=== PATIENT | female | born 1970 | race Caucasian/White ===

== ENCOUNTER 2019-08-31 04:13 | Observation (INO) | payer OTHER ==
[2019-08-31 05:25] LABS: Hematocrit 40.7 % (30.3-42.9); Hemoglobin 13.5 gm/dl (10.1-14.3); Mean Corpuscular HGB Conc 33 % (30-34); Mean Corpuscular Volume 88 fl (79-97); Platelet Count 298 K/mm3 (140-440); Red Blood Count 4.65 M/mm3 (3.65-5.03); Red Cell Distribution Width 12.7 % (13.2-15.2)
[2019-08-31 05:41] LABS: Alanine Aminotransferase 26 units/L (7-56); Albumin 4.6 g/dL (3.9-5); BUN/Creatinine Ratio 25; Blood Urea Nitrogen 10 mg/dL (7-17); Hemolysis Index 7
[2019-08-31 06:11] LABS: Basophils % (Manual) 0 % (0.0-1.8); Eosinophils % (Manual) 0 % (0.0-4.3); Platelet Estimate Consistent w Auto; Total Cells Counted 100
--- NOTE | 2019-08-31 06:44 | Cat Scan Report ---
CT abdomen pelvis w con INDICATION / CLINICAL INFORMATION: Pt complains of "Generalized" abdominal pain with emesis x 1 day. No previous abdominal surgeries. Om nipaque 300 / 100ml's was used for this exam.. TECHNIQUE: All CT scans at this location are performed using CT dose reduction for ALARA by means of automated e xposure control. COMPARISON: None available. FINDINGS: No free fluid is seen in the abdomen. Diffuse fatty infiltration is present in the liver without foca l abnormality. The proximal duodenum is edematous. The spleen, kidneys, pancreas, adrenal glands and great vessels are normal. No enlarged mesenteric or retroperitoneal lymph nodes are identified. In the pelvis, no free fluid is seen. The appendix is distended with fluid and contains at least 2 ap pendicoliths. No periappendiceal inflammation is seen. No enlarged lymph nodes are identified. The bl adder is normal. No significant skeletal abnormality is present. IMPRESSION: 1. Distended fluid-filled appendix with at least 2 appendicoliths present. No periappendiceal inflamm ation is seen. The presence of early appendicitis cannot be excluded 2. Edematous proximal duodenum consistent with inflammation Signer Name: Paxton Caba MD FACR Signed: 08/31/2019 6:40 AM Workstation Name: [employer]
[2019-08-31] MEDS ORDERED: MORPHINE 4 MG/1 ML INJ IV ONE (07:38)
[2019-08-31] MEDS ORDERED: ONDANSETRON 4 MG/2 ML INJ IV ONE (07:38)
[2019-08-31] MEDS ORDERED: PANTOPRAZOLE 40 MG INJ IV ONE (07:40)
--- NOTE | 2019-08-31 07:49 | Emergency Department Report ---
ED Abdominal Pain HPI - General Chief Complaint: Abdominal Pain Stated Complaint: ABD PAIN Time Seen by Provider: 08/31/19 07:34 Source: patient Mode of arrival: Ambulatory Limitations: No Limitations - History of Present Illness Initial Comments: Mrs. Salazar is a 49-year-old female without significant past medical history who presents with sharp epigastric pain persistent for the past day. One episode of vomiting. No fever. No diarrhea. No constipation. No past surgical history. She has had mild epigastric pain for several years. At outside hospital she underwent EGD without any findings. For the past day and a half the pain is been severe. Patient primarily speaks Arabic. I used language line spanish interpreter ID number [id number] to obtain history and physical and also to explain diagnosis and treatment plan. MD Complaint: abdominal pain -: Gradual Location: epigastric (1) Severity: moderate Quality: burning Consistency: constant Improves With: nothing Worsens With: nothing Associated Symptoms: nausea, vomiting - Related Data Allergies Allergy/AdvReac Type Severity Reaction Status Date / Time No Known Allergies Allergy Unverified 08/31/19 04:34 ED Review of Systems ROS: Stated complaint: ABD PAIN Other details as noted in HPI Comment: All other systems reviewed and negative Constitutional: denies: chills, fever, malaise Cardiovascular: denies: chest pain Gastrointestinal: abdominal pain, nausea, vomiting ED Past Medical Hx - Past Medical History Previous Medical History?: No - Surgical History Past Surgical History?: No - Social History Smoking Status: Never Smoker Substance Use Type: None ED Physical Exam - General Limitations: No Limitations General appearance: alert, in no apparent distress, other (Appears uncomfortable) - Head Head exam: Present: atraumatic, normocephalic - Eye Eye exam: Present: normal appearance - ENT ENT exam: Present: mucous membranes moist - Neck Neck exam: Present: normal inspection, full ROM - Respiratory Respiratory exam: Present: normal lung sounds bilaterally. Absent: respiratory distress, wheezes, rales, rhonchi - Cardiovascular Cardiovascular Exam: Present: regular rate, normal rhythm, normal heart sounds. Absent: systolic murmur, diastolic murmur, rubs, gallop - GI/Abdominal GI/Abdominal exam: Present: soft, normal bowel sounds. Absent: distended, tenderness, guarding, rebound - Extremities Exam Extremities exam: Present: normal inspection - Neurological Exam Neurological exam: Present: alert, oriented X3 - Psychiatric Psychiatric exam: Present: normal affect, normal mood - Skin Skin exam: Present: warm, dry, intact, normal color. Absent: rash ED Course Vital Signs 08/31/19 08/31/19 08/31/19 04:32 07:33 07:36 Temperature 98.1 F Pulse Rate 91 H 85 85 Respiratory 20 17 18 Rate Blood Pressure 90/58 115/73 O2 Sat by Pulse 98 98 Oximetry ED Medical Decision Making - Lab Data Result diagrams: 08/31/19 05:10 08/31/19 05:10 Laboratory Results - last 24 hr 08/31/19 08/31/19 05:10 05:10 WBC 12.0 H RBC 4.65 Hgb 13.5 Hct 40.7 MCV 88 MCH 29 MCHC 33 RDW 12.7 L Plt Count 298 Add Manual Diff Complete Total Counted 100 Seg Neutrophils % Lead Front Desk Agent Seg Neuts % (Manual) 91.0 H Band Neutrophils % 0 Lymphocytes % (Manual) 6.0 L Reactive Lymphs % (Man) 0 Monocytes % (Manual) 3.0 Eosinophils % (Manual) 0 Basophils % (Manual) 0 Metamyelocytes % 0 Myelocytes % 0 Promyelocytes % 0 Blast Cells % 0 Nucleated RBC % Not Reportable Seg Neutrophils # Man 10.9 H Band Neutrophils # 0.0 Lymphocytes # (Manual) 0.7 L Abs React Lymphs (Man) 0.0 Monocytes # (Manual) 0.4 Eosinophils # (Manual) 0.0 Basophils # (Manual) 0.0 Metamyelocytes # 0.0 Myelocytes # 0.0 Promyelocytes # 0.0 Blast Cells # 0.0 WBC Morphology Not Reportable Hypersegmented Neuts Not Reportable Hyposegmented Neuts Not Reportable Hypogranular Neuts Not Reportable Smudge Cells Not Reportable Toxic Granulation Not Reportable Toxic Vacuolation Not Reportable Dohle Bodies Not Reportable Pelger-Huet Anomaly Not Reportable Alexsandra Rods Not Reportable Platelet Estimate Consistent w auto Clumped Platelets Not Reportable Plt Clumps, EDTA Not Reportable Large Platelets Not Reportable Giant Platelets Not Reportable Platelet Satelliting Not Reportable Plt Morphology Comment Not Reportable RBC Morphology Not Reportable Dimorphic RBCs Not Reportable Polychromasia Not Reportable Hypochromasia Not Reportable Poikilocytosis Not Reportable Anisocytosis Not Reportable Microcytosis Not Reportable Macrocytosis Not Reportable Spherocytes Not Reportable Pappenheimer Bodies Not Reportable Sickle Cells Not Reportable Target Cells Not Reportable Tear Drop Cells Not Reportable Ovalocytes Not Reportable Helmet Cells Not Reportable [place] Bodies Not Reportable [place] Rings Not Reportable Andrews Cells Not Reportable Bite Cells Not Reportable Crenated Cell Not Reportable Elliptocytes Not Reportable Acanthocytes (Spur) Not Reportable Rouleaux Not Reportable Hemoglobin C Crystals Not Reportable Schistocytes Not Reportable Malaria parasites Not Reportable Víctor Bodies Not Reportable Hem Pathologist Commnt No Sodium 137 Potassium 3.8 Chloride 98.2 Carbon Dioxide 22 Anion Gap 21 BUN 10 Creatinine 0.4 L Estimated GFR > 60 BUN/Creatinine Ratio 25 Glucose 153 H Calcium 9.0 Total Bilirubin 0.80 AST 24 ALT 26 Alkaline Phosphatase 79 Total Protein 7.7 Albumin 4.6 Albumin/Globulin Ratio 1.5 - Radiology Data Radiology results: report reviewed CT abdomen pelvis: Distended fluid-filled appendix with 2 appendicoliths present no periappendiceal inflammation is seen possible early appendicitis Edematous proximal duodenum consistent with inflammation - Medical Decision Making This is a 49-year-old female who presents with epigastric pain 1 episode of vomiting. She has findings on CT scan revealed possible early appendicitis and edematous duodenum. Symptoms do correspond to peptic ulcer disease possible duodenitis. However with the incidental finding of possible appendicitis with elevated blood count I have consulted general surgeon Dr Plascencia who recommended observation and IV antbiotics Admitted to the hospitalist service. I suspect that abnormal appendix is an incidental finding however with however with white count left shift it is prudent to treat patient conservatively according to general surgeon consult Critical care attestation.: If time is entered above; I have spent that time in minutes in the direct care of this critically ill patient, excluding procedure time. ED Disposition Clinical Impression: Peptic ulcer disease, Appendicitis, Acute abdominal pain Disposition: OP ADMIT IP TO THIS HOSP Is pt being admited?: Yes Does the pt Need Aspirin: No Condition: Stable Referrals: PRIMARY CARE, [Primary Care Provider] - 3-5 Days
[2019-08-31] MEDS ORDERED: PIPERACIL/TAZOBACTA 4.5/NS 100 4.5 GM/100 ML VIAL IV ONE (07:50)
[2019-08-31] MEDS ORDERED: hydrALAZINE 20 MG/1 ML INJ IV PRN (09:07)
[2019-08-31] MEDS ORDERED: ONDANSETRON 4 MG/2 ML INJ IV PRN (09:07)
[2019-08-31] MEDS ORDERED: MORPHINE 2 MG/1 ML INJ IV PRN (09:07)
--- NOTE | 2019-08-31 09:10 | History and Physical Report ---
History of Present Illness Date of examination: 08/31/19 Date of admission: 08/31/19 08:04 Chief complaint: Abdominal pain History of present illness: This is a 49-year-old female without any prior medical problem presented to the ER with complaints of epigastric pain for last couple days along with nausea and vomiting. Patient states that the pain located on the epigastric region which get worse with eating pain is sharp in nature 7 out of 10 in intensity. As her symptoms continue to get worse and she was unable to eat anything she came to ER for further evaluation and management. In the ER she has findings on CT scan revealed possible early appendicitis and edematous duodenum. Due to the incidental finding of possible appendicitis with elevated blood count ER consulted general surgeon Dr Plascencia who recommended observation and IV antbiotics. Patient now being admitted for further evaluation and management. Past Medical History: No medical history Past Surgical History: No surgical history Social history: denies: smoking, alcohol abuse Family history: denies gastric malignancy Review of System: Constitutional: no fever, no chills, no weight loss Ears, eyes, nose, mouth and throat: no nasal congestion, no nasal discharge, no sinus pressure, no vision change, no red eye. Neck: No neck pain or rigidity. Cardiovascular: No chest pain, no orthopnea, no palpitations, no leg swelling Respiratory: No shortness of breath, no cough, no congestion, no wheezing Gastrointestinal: + abdominal pain, + nausea, + vomiting Genitourinary : no dysuria, no hematuria Musculoskeletal: no joint swelling or muscle ache Integumentary: no rash, no pruritis Neurological: no parathesias, no numbness, no tingling Endocrine: no cold or heat intolerance, no polyuria or polydipsia Hematologic/Lymphatic: no easy bruising, no easy bleeding, no gland swelling Allergic/Immunologic: no urticaria, no angioedema. Medications and Allergies Allergies Allergy/AdvReac Type Severity Reaction Status Date / Time No Known Allergies Allergy Unverified 08/31/19 04:34 Home Medications Medication Instructions Recorded Confirmed Last Taken Type No Known Home Medications [No 08/31/19 08/31/19 Unknown History Reported Home Medications] Active Meds: Active Medications Enoxaparin Sodium (Enoxaparin) 40 mg SUB-Q QDAY@2200 [facility] Hydralazine HCl (Apresoline) 5 mg IV Q30MIN PRN PRN Reason: Hypertension Sodium Chloride (Nacl 0.9% 1000 Ml) 1,000 mls @ 100 mls/hr IV DIRECT [facility] Ceftriaxone Sodium (Rocephin/Ns 1 Gm/50 Ml) 1 gm in 50 mls @ 100 mls/hr IV Q12HR [facility]; Protocol Morphine Sulfate (Morphine) 2 mg IV Q4H PRN PRN Reason: Pain, Moderate (4-6) Ondansetron HCl (Zofran) 4 mg IV Q8H PRN PRN Reason: N/V unrelieved by Reglan Exam - Physical Exam Narrative exam: GENERAL: well-developed and well-nourished female lying on bed appeared to be i n no discomfort. HEENT: Normocephalic. Atraumatic. No conjunctival congestion or icterus. Patient has moist mucous membranes. NECK: Supple. Trachea midline. CHEST/LUNGS: Clear to auscultated bilaterally, breathing nonlabored. No wheezes crackles or rhonchi. HEART/CARDIOVASCULAR: Regular in rate and rhythm. S1 and S2 positive. ABDOMEN: Abdomen is soft, positive for epigastric and upper abdomen diffuse mild tenderness. Patient has normal bowel sounds. SKIN: There is no rash. Warm and dry. NEURO: No focal motor deficit. Follows command. MUSCULOSKELETAL: No joint effusion or tenderness. EXTRIMITY: No edema, no cyanosis or clubbing. PSYCH: Cooperative. - Constitutional Vitals: Temp Pulse Resp BP Pulse Ox 98.1 F 85 19 98/64 99 08/31/19 04:32 08/31/19 08:30 08/31/19 08:30 08/31/19 08:30 08/31/19 08:30 Results - Labs CBC & Chem 7: 09/01/19 04:29 08/31/19 05:10 Labs: Abnormal lab results 08/31/19 08/31/19 Range/Units 05:10 05:10 WBC 12.0 H (4.5-11.0) K/mm3 RDW 12.7 L (13.2-15.2) % Seg Neuts % (Manual) 91.0 H (40.0-70.0) % Lymphocytes % (Manual) 6.0 L (13.4-35.0) % Seg Neutrophils # Man 10.9 H (1.8-7.7) K/mm3 Lymphocytes # (Manual) 0.7 L (1.2-5.4) K/mm3 Creatinine 0.4 L (0.7-1.2) mg/dL Glucose 153 H (65-100) mg/dL - Imaging and Cardiology CT scan - abdomen: report reviewed Assessment and Plan Acute appendicitis- suspected -Admit the patient to [facility], consult general surgery -Start on empiric and antibiotics, continue IV fluids, keep n.p.o. -Ordered as needed nausea and IV pain medications -Monitor BMP, Peptic ulcer disease, placed on PPI twice daily, consulted GI Leukocytosis, could be reactive -Continue antibiotics for now DVT prophylaxis, Lovenox following surgery CT abdomen pelvis: Distended fluid-filled appendix with 2 appendicoliths present no periappendiceal inflammation is seen possible early appendicitis. Edematous proximal duodenum consistent with inflammation
[2019-08-31] MEDS ORDERED: cefTRIAXone/NS 1 GM/50 ML 1 GM/50 ML BAG IV SCH (10:00)
--- NOTE | 2019-08-31 10:50 | Consultation ---
History of Present Illness Consult date: 08/31/19 Reason for consult: other (appendicitis?) Chief complaint: abdominal pain - History of present illness History of present illness: 49 year old Serbian female presents with a several day hx of epigastric pain and several episodes of vomiting. She says she had a similar pain about 5 years ago of which she was treated at a hospital and discharged without incident. She says that she has been having regular bowel movements and passing gas. She takes nexium for her abdominal pain. She denies taking NSIADS, smoking, or drinking alcohol excessively. She believes she may have had an EGD about 5 years ago when she was last having the pain. She had a CT scan in the ED which showed duodenal inflammation which explains her symptoms, but an incidental finding of fluid filled, dilated appendix with appendecholith without signs of inflammation. No free air or fluid. She denies ever have RLQ pain. Information obtained via a Serbian distributed generation project manager over the phone. Past History Past Medical History: No medical history Past Surgical History: No surgical history Social history: denies: smoking, alcohol abuse Medications and Allergies Allergies Allergy/AdvReac Type Severity Reaction Status Date / Time No Known Allergies Allergy Unverified 08/31/19 04:34 Active Meds: Active Medications Enoxaparin Sodium (Enoxaparin) 40 mg SUB-Q QDAY@2200 [facility] Hydralazine HCl (Apresoline) 5 mg IV Q30MIN PRN PRN Reason: Hypertension Sodium Chloride (Nacl 0.9% 1000 Ml) 1,000 mls @ 100 mls/hr IV DIRECT [facility] Ceftriaxone Sodium (Rocephin/Ns 1 Gm/50 Ml) 1 gm in 50 mls @ 100 mls/hr IV Q24HR [facility]; Protocol Morphine Sulfate (Morphine) 2 mg IV Q4H PRN PRN Reason: Pain, Moderate (4-6) Ondansetron HCl (Zofran) 4 mg IV Q8H PRN PRN Reason: N/V unrelieved by Reglan Pantoprazole Sodium (Protonix) 40 mg IV BID [facility] Review of Systems - Constitutional poor appetite - Cardiovascular no chest pain - Respiratory no cough with sputum - Gastrointestinal abdominal pain, nausea, vomiting Exam Vital Signs Temp Pulse Resp BP Pulse Ox 98.1 F 91 H 20 90/58 98 08/31/19 04:32 08/31/19 04:32 04/01/20 04:32 08/31/19 04:32 08/31/19 04:32 - General physical appearance Positive: well developed, well nourished, no distress - Cardiovascular Rhythm: regular - Extremities Extremities: no ischemia - Abdomen Abdomen: Present: soft, other (tender to palpation in the epigastric area, no tenderness to palpation in the RLQ or suprapubic area). Absent: rebound, guarding, rigid Results - Labs 08/31/19 05:10 08/31/19 05:10 Abnormal lab results 08/31/19 08/31/19 Range/Units 05:10 05:10 WBC 12.0 H (4.5-11.0) K/mm3 RDW 12.7 L (13.2-15.2) % Seg Neuts % (Manual) 91.0 H (40.0-70.0) % Lymphocytes % (Manual) 6.0 L (13.4-35.0) % Seg Neutrophils # Man 10.9 H (1.8-7.7) K/mm3 Lymphocytes # (Manual) 0.7 L (1.2-5.4) K/mm3 Creatinine 0.4 L (0.7-1.2) mg/dL Glucose 153 H (65-100) mg/dL Diabetes panel 08/31/19 Range/Units 05:10 Sodium 137 (137-145) mmol/L Potassium 3.8 (3.6-5.0) mmol/L Chloride 98.2 (98-107) mmol/L Carbon Dioxide 22 (22-30) mmol/L BUN 10 (7-17) mg/dL Creatinine 0.4 L (0.7-1.2) mg/dL Glucose 153 H (65-100) mg/dL Calcium 9.0 (8.4-10.2) mg/dL AST 24 (5-40) units/L ALT 26 (7-56) units/L Alkaline Phosphatase 79 (35-129) units/L Total Protein 7.7 (6.3-8.2) g/dL Albumin 4.6 (3.9-5) g/dL Calcium panel 08/31/19 Range/Units 05:10 Calcium 9.0 (8.4-10.2) mg/dL Albumin 4.6 (3.9-5) g/dL Pituitary panel 08/31/19 Range/Units 05:10 Sodium 137 (137-145) mmol/L Potassium 3.8 (3.6-5.0) mmol/L Chloride 98.2 (98-107) mmol/L Carbon Dioxide 22 (22-30) mmol/L BUN 10 (7-17) mg/dL Creatinine 0.4 L (0.7-1.2) mg/dL Glucose 153 H (65-100) mg/dL Calcium 9.0 (8.4-10.2) mg/dL Adrenal panel 08/31/19 Range/Units 05:10 Sodium 137 (137-145) mmol/L Potassium 3.8 (3.6-5.0) mmol/L Chloride 98.2 (98-107) mmol/L Carbon Dioxide 22 (22-30) mmol/L BUN 10 (7-17) mg/dL Creatinine 0.4 L (0.7-1.2) mg/dL Glucose 153 H (65-100) mg/dL Calcium 9.0 (8.4-10.2) mg/dL Total Bilirubin 0.80 (0.1-1.2) mg/dL AST 24 (5-40) units/L ALT 26 (7-56) units/L Alkaline Phosphatase 79 (35-129) units/L Total Protein 7.7 (6.3-8.2) g/dL Albumin 4.6 (3.9-5) g/dL - Imaging CT scan - abdomen: report reviewed, image reviewed CT scan - pelvis: report reviewed, image reviewed Assessment and Plan 49 year old female with epigatric pain with duodenitis on CT scan, incidental finding of abnormal appendix with no correlating symtpoms at this time. Afebrile, stable, with leukocytosis. observe, abx. can have clear liquids. If pain becomes localized to the RLQ, may warrant lap appy. At present no surgical intervention warranted at this time. Will continue to follow.
[2019-08-31] MEDS: SODIUM CHLORIDE 0.9% 1000 ML 1,000 ML IV SCH ×2 (11:13→21:51)
[2019-08-31] MEDS: SUCRALFATE 1 GM/10 ML ORAL LIQD PO SCH ×2 (11:26→18:07)
[2019-08-31] MEDS: cefTRIAXone/NS 1 GM/50 ML 1 GM/50 ML BAG IV SCH (11:26)
[2019-08-31] MEDS: ENOXAPARIN 40 MG/0.4 ML INJ SUB-Q SCH (21:52)
[2019-08-31] MEDS: PANTOPRAZOLE 40 MG INJ IV SCH (21:52)
[2019-09-01] MEDS: SUCRALFATE 1 GM/10 ML ORAL LIQD PO SCH ×5 (03:43→23:56)
[2019-09-01 05:20] LABS: Eosinophils # (Auto) 0.1 K/mm3 (0.0-0.4); Eosinophils % (Auto) 1.1 % (0.0-4.3); Hematocrit 35.8 % (30.3-42.9); Lymphocytes # (Auto) 2.1 K/mm3 (1.2-5.4); Lymphocytes % (Auto) 24.3 % (13.4-35.0); Mean Corpuscular HGB Conc 33 % (30-34); Mean Corpuscular Volume 89 fl (79-97); Monocytes # (Auto) 0.4 K/mm3 (0.0-0.8); Monocytes % (Auto) 5.1 % (0.0-7.3); Platelet Count 252 K/mm3 (140-440); Red Blood Count 4.03 M/mm3 (3.65-5.03); Red Cell Distribution Width 12.9 % (13.2-15.2)
[2019-09-01] MEDS: SODIUM CHLORIDE 0.9% 1000 ML 1,000 ML IV SCH ×2 (07:46→21:59)
[2019-09-01] MEDS: cefTRIAXone/NS 1 GM/50 ML 1 GM/50 ML BAG IV SCH (10:25)
[2019-09-01] MEDS: PANTOPRAZOLE 40 MG INJ IV SCH ×2 (10:25→22:00)
--- NOTE | 2019-09-01 10:31 | Gastroenterology Consultation ---
History of Present Illness - Reason for Consult Consult date: 09/01/19 abd pain, abnormal CT abd Requesting physician: JAMEY WILSON - History of Present Illness Patient is a pleasant 49-year-old female who presents with acute abdominal pain. She reports the abdominal pain is epigastric, intermittent, duration 3 days, worse with eating better with nothing, severe, she is having difficulty describing the quality of the pain just that it is extremely bothersome and there, no radiation, no nausea or vomiting or diarrhea associated with the symptoms. Reports had similar symptoms 5 years ago had an EGD she does not know the underlying etiology of that episode 5 years ago. Did have a CT scan which was concerning for significant duodenitis/peptic ulcer disease. reports the pain is not abating Denies history of NSAID use. Reports taking intermittent PPI Denies sick contacts or travel history Used telephone via means scaleman for history Past Medical History: No medical history Past Surgical History: No surgical history Social history: denies: smoking, alcohol abuse Family history denies gastric malignancy Allergies no known drug allergies Home medicationsplease see med rec sheet Obtained/updated/reviewed patient's current medications Past History Past Medical History: No medical history Past Surgical History: No surgical history Social history: denies: smoking, alcohol abuse Medications and Allergies Allergies Allergy/AdvReac Type Severity Reaction Status Date / Time No Known Allergies Allergy Unverified 08/31/19 04:34 Home Medications Medication Instructions Recorded Confirmed Last Taken Type No Known Home Medications [No 08/31/19 08/31/19 Unknown History Reported Home Medications] Active Meds: Active Medications Enoxaparin Sodium (Enoxaparin) 40 mg SUB-Q QDAY@2200 [facility] Last Admin: 08/31/19 21:52 Dose: 40 mg Documented by: Hydralazine HCl (Apresoline) 5 mg IV Q30MIN PRN PRN Reason: Hypertension Sodium Chloride (Nacl 0.9% 1000 Ml) 1,000 mls @ 100 mls/hr IV DIRECT [facility] Last Admin: 09/01/19 07:46 Dose: 100 mls/hr Documented by: Ceftriaxone Sodium (Rocephin/Ns 1 Gm/50 Ml) 1 gm in 50 mls @ 100 mls/hr IV Q24HR [facility]; Protocol Last Admin: 09/01/19 10:25 Dose: 100 mls/hr Documented by: Morphine Sulfate (Morphine) 2 mg IV Q4H PRN PRN Reason: Pain, Moderate (4-6) Ondansetron HCl (Zofran) 4 mg IV Q8H PRN PRN Reason: N/V unrelieved by Regbeny Pantoprazole Sodium (Protonix) 40 mg IV BID [facility] Last Admin: 09/01/19 10:25 Dose: 40 mg Documented by: Sucralfate (Carafate) 1 gm PO Q6HR [facility] Last Admin: 09/01/19 06:58 Dose: 1 gm Documented by: Review of Systems - Review of Systems All systems: negative (10 systems reviewed and negative except as mentioned above in the history present illness) Exam - Constitutional Vital Signs: Temp Pulse Resp BP Pulse Ox 97.9 F 82 18 96/72 96 09/01/19 08:58 09/01/19 08:58 09/01/19 08:58 09/01/19 08:58 09/01/19 08:58 General appearance: no acute distress - EENT Eyes: EOM intact ENT: hearing intact - Neck Neck: supple - Respiratory Respiratory effort: normal - Cardiovascular Rhythm: regular - Gastrointestinal General gastrointestinal: Present: soft, tender (Minimal upper abdominal tenderness to palpation) - Integumentary Integumentary: Present: dry - Neurologic Neurological: alert and oriented x3 - Psychiatric Psychiatric: appropriate mood/affect - Labs CBC & Chem 7: 09/01/19 04:29 08/31/19 05:10 Lab Results: Laboratory Results - last 24 hr 09/01/19 04:29 WBC 8.5 RBC 4.03 Hgb 12.0 Hct 35.8 MCV 89 MCH 30 MCHC 33 RDW 12.9 L Plt Count 252 Lymph % (Auto) 24.3 Hemphill % (Auto) 5.1 Eos % (Auto) 1.1 Baso % (Auto) 0.0 Lymph # 2.1 [place]ill # 0.4 Eos # 0.1 Baso # 0.0 Seg Neutrophils % 69.5 Seg Neutrophils # 5.9 Assessment and Plan Highest on the differential diagnosis is acute peptic ulcer disease, followed by infectious duodenitis mass/malignancy, etc. Given the severity of her symptoms and significant abnormality on CAT scan do recommend EGD for further evaluation please maintain n.p.o. status in anticipation EGD in the near future continue PPI and Carafate in the meantime Regarding possible appendicitis seen on the CAT scan, appreciate surgery input and agree that given normalized white count and patient without any tenderness to palpation in the right lower quadrant surgical intervention is not required at this juncture, - Patient Problems (1) Abnormal abdominal CT scan Current Visit: Yes Status: Acute (2) Acute abdominal pain Current Visit: Yes Status: Acute (3) Peptic ulcer disease Current Visit: Yes Status: Acute
--- NOTE | 2019-09-01 12:21 | Progress Note ---
Assessment and Plan 49 year old female with epigastric pain and CT scan that shows duodenal inflammation and appendiceal abnormalities with no inflammation. af ebrile,stable, with normalization of leukocytosis. No surgical intervention warranted at this time since she is asymptomatic in regards to appendix. GI is on board to evaluate epigastric pain and may do EGD. Pt can follow up in the office if RLQ pain presents itself after discharge and not severe enough to be evaluated in the ER. Subjective Date of service: 09/01/19 Patient Reports: Positive: no new complaints, feels better, tolerating liquids well Narrative: no acute events overnight. Pt says that she is not having any lower abdominal pain and that her epigastric pain is improved. Objective Vital Signs - 12hr 09/01/19 09/01/19 04:51 08:58 Temperature 97.9 F 97.9 F Pulse Rate 84 82 Respiratory 18 18 Rate Blood Pressure 90/57 Blood Pressure 96/72 [Left] O2 Sat by Pulse 97 96 Oximetry - General physical appearance well developed, no distress, no pain - Respiratory normal expansion, normal respiratory effort - Abdomen soft, not tender - Labs 09/01/19 04:29 08/31/19 05:10
--- NOTE | 2019-09-01 13:23 | Progress Note ---
Assessment and Plan Acute appendicitis- suspected based on CT abdomen findings -consulted general surgery -recommended no surgical intervention -Start on empiric and antibiotics, continue IV fluids, -Ordered as needed nausea and IV pain medications -Monitor BMP, Peptic ulcer disease, placed on PPI twice daily, consulted GI -Started on clear liquid diet, also placed on Carafate -Keep n.p.o. now for possible EGD today Leukocytosis, could be reactive -Continue antibiotics for now DVT prophylaxis, Lovenox following surgery CT abdomen pelvis: Distended fluid-filled appendix with 2 appendicoliths present no periappendiceal inflammation is seen possible early appendicitis. Edematous proximal duodenum consistent with inflammation Subjective Date of service: 09/01/19 Interval history: Patient seen and examined Patient continued to complains of epigastric pain GI recommended EGD, will keep n.p.o. Objective - Exam Narrative Exam: GENERAL: well-developed and well-nourished female lying on bed appeared to be in no discomfort. HEENT: Normocephalic. Atraumatic. No conjunctival congestion or icterus. Patient has moist mucous membranes. NECK: Supple. Trachea midline. CHEST/LUNGS: Clear to auscultated bilaterally, breathing nonlabored. No wheezes crackles or rhonchi. HEART/CARDIOVASCULAR: Regular in rate and rhythm. S1 and S2 positive. ABDOMEN: Abdomen is soft, positive for epigastric and upper abdomen diffuse mild tenderness. Patient has normal bowel sounds. SKIN: There is no rash. Warm and dry. NEURO: No focal motor deficit. Follows command. MUSCULOSKELETAL: No joint effusion or tenderness. EXTRIMITY: No edema, no cyanosis or clubbing. PSYCH: Cooperative. - Constitutional Vitals: Vital Signs - 12hr 09/01/19 09/01/19 09/01/19 04:51 08:58 10:20 Temperature 97.9 F 97.9 F Pulse Rate 84 82 82 Respiratory 18 18 Rate Blood Pressure 90/57 121/83 Blood Pressure 96/72 [Left] O2 Sat by Pulse 97 96 98 Oximetry 09/01/19 12:21 Temperature 98.4 F Pulse Rate 85 Respiratory 18 Rate Blood Pressure 104/82 Blood Pressure [Left] O2 Sat by Pulse 98 Oximetry - Labs CBC & Chem 7: 09/01/19 04:29 08/31/19 05:10 Labs: Abnormal lab results 09/01/19 Range/Units 04:29 RDW 12.9 L (13.2-15.2) %
[2019-09-01] MEDS ORDERED: SODIUM CHLORIDE 0.9% 1000 ML 1,000 ML ONE (14:15)
--- NOTE | 2019-09-01 14:22 | Anesthesia Consultation ---
Anesthesia Consult and Med Hx Date of service: 09/01/19 - Airway Anesthetic Teeth Evaluation: Good ROM Head & Neck: Adequate Mental/Hyoid Distance: Adequate Mallampati Class: Class II Intubation Access Assessment: Probably Good - Pre-Operative Health Status ASA Pre-Surgery Classification: ASA2 Proposed Anesthetic Plan: MAC - Gastrointestinal Hx Ulcer: Yes Hx Gastroesophageal Reflux Disease: Yes
--- NOTE | 2019-09-01 14:22 | Anesthesia Day of Surgery ---
Anesthesia Day of Surgery - Day of Surgery Patient Examined: Yes Patient H&P Reviewed: Yes Patient is NPO: Yes
[2019-09-01] MEDS ORDERED: propofoL 200 MG/20 ML VIAL IV ONE (14:25)
[2019-09-01] MEDS ORDERED: SODIUM CHLORIDE 0.9% 1000 ML 1,000 ML IV SCH (14:30)
--- NOTE | 2019-09-01 14:35 | Operative Report ---
Operative Report Operative Report: DOS: 09/01/19 SURGEON: Shawn Rivera MD EGD with biopsy REPORT PREOPERATIVE DIAGNOSIS and POSTOPERATIVE DIAGNOSIS: Epigastric abdominal pain, abnormal CAT scan ESTIMATED BLOOD LOSS: Minimal DESCRIPTION OF PROCEDURE: A high-resolution EGD scope was passed through the oropharynx, esophagus, stomach, and second portion of duodenum. The scope was carefully withdrawn. Retroflexion was performed in the stomach. At the end of the procedure, the scope was cleaned using normal technique. Vital signs monitored continuously throughout. SEDATION: Provided by Anesthesiology Services. COMPLICATIONS: None. FINDINGS: * No gross lesions in the entire examined duodenum no correlate on EGD for the abnormality seen on the CAT scan * Mild gastritis of the gastric antrum and body with mild erythema. Biopsies were taken to rule out H. Pylori infection. A total of 5 biopsies were taken, 2 from the antrum, 1 from the incisura, 2 from the body. * GE junction 38 cm from incisors * Remainder of the exam was normal RECOMMENDATIONS: * No clear GI source for the severe abdominal pain in the epigastric area that the patient is experiencing. Continue PPI and Carafate and reassess in a.m. diet initiated
[2019-09-01] MEDS: ENOXAPARIN 40 MG/0.4 ML INJ SUB-Q SCH (22:00)
--- NOTE | 2019-09-01 22:22 | Post Anesthesia Evaluation ---
- Post Anesthesia Evaluation Patient Participated: Yes Airway Patent: Yes Stable Respiratory Function: Yes Nausea/Vomiting: No Temp > 96.8F: Yes Pain Manageable: Yes Adequeate Hydration: Yes Anesthesia Complications: No
[2019-09-02] MEDS: SUCRALFATE 1 GM/10 ML ORAL LIQD PO SCH ×2 (05:24→11:50)
[2019-09-02] MEDS: SODIUM CHLORIDE 0.9% 1000 ML 1,000 ML IV SCH (05:25)
[2019-09-02 07:57] VITALS: BP 108/64
[2019-09-02] MEDS: cefTRIAXone/NS 1 GM/50 ML 1 GM/50 ML BAG IV SCH (09:31)
[2019-09-02] MEDS: PANTOPRAZOLE 40 MG INJ IV SCH (09:31)
--- NOTE | 2019-09-02 11:26 | Discharge Summary ---
Providers - Providers Date of Admission: 08/31/19 08:04 Date of discharge: 09/02/19 Attending physician: JAMEY WILSON 08/31/19 09:06 Consult to Physician [CONS] Routine Comment: Consulting Provider: MIRYAM PLASCENCIA Physician Instructions: Reason For Exam: appendicitis 08/31/19 14:42 Consult to Physician [CONS] Routine Comment: Consulting Provider: RYAN AREVALO Physician Instructions: Reason For Exam: epigastric pain Primary care physician: TUBE FORMER OPERATOR Hospitalization Condition: Stable Hospital course: This is a 49-year-old female without any prior medical problem presented to the ER with complaints of epigastric pain for last couple days along with nausea and vomiting. As her symptoms continue to get worse and she was unable to eat anything she came to ER for further evaluation and management. In the ER she has findings on CT scan revealed possible early appendicitis and edematous duodenum. Due to the incidental finding of possible appendicitis with elevated blood count ER consulted general surgeon Dr Plascencia who recommended observation and IV antbiotics. Dr. Plascencia recommended no surgical intervention is necessary and to continue medical management. Due to her ongoing epigastric pain GI was consulted and she was further evaluated by EGD which showed mild gastritis. Patient was then discharged home with the PPI and Carafate. She was recommended to has advance diet as tolerated and to follow-up with GI as outpatient. CT abdomen pelvis: Distended fluid-filled appendix with 2 appendicoliths present no periappendiceal inflammation is seen possible early appendicitis. Edematous proximal duodenum consistent with inflammation Discharge diagnosis: Acute appendicitis- suspected based on CT abdomen findings -consulted general surgery -recommended no surgical intervention Epigastric pain with peptic ulcer disease, placed on PPI twice daily, consulted GI -also placed on Carafate -s/p EGD showed mild gastritis - advance diet as tolerated and outpt f/u Leukocytosis, could be reactive -no sepsis DVT prophylaxis, SCD Disposition: TO HOME OR SELFCARE Time spent for discharge: 34 minutes Core Measure Documentation - Palliative Care Palliative Care/ Comfort Measures: Not Applicable - Core Measures Any of the following diagnoses?: none Exam - Physical Exam Narrative exam: GENERAL: well-developed and well-nourished female lying on bed appeared to be in no discomfort. HEENT: Normocephalic. Atraumatic. No conjunctival congestion or icterus. Patient has moist mucous membranes. NECK: Supple. Trachea midline. CHEST/LUNGS: Clear to auscultated bilaterally, breathing nonlabored. No wheezes crackles or rhonchi. HEART/CARDIOVASCULAR: Regular in rate and rhythm. S1 and S2 positive. ABDOMEN: Abdomen is soft, Patient has normal bowel sounds. SKIN: There is no rash. Warm and dry. NEURO: No focal motor deficit. Follows command. MUSCULOSKELETAL: No joint effusion or tenderness. EXTRIMITY: No edema, no cyanosis or clubbing. PSYCH: Cooperative. - Constitutional Vitals: Temp Pulse Resp BP Pulse Ox 98.2 F 74 18 108/64 98 09/02/19 07:09 09/02/19 03:25 09/02/19 10:25 09/02/19 07:09 09/02/19 03:25 Plan Activity: advance as tolerated Weight Bearing Status: Weight Bear as Tolerated Diet: low fat, advance as tolerated Follow up with: PRIMARY CARE, [Primary Care Provider] - 3-5 Days CRISSY JOSE MD [Staff Physician] - 7 Days Prescriptions: Sucralfate [Carafate] 1 gm PO Q6HR 14 Days Pantoprazole [Protonix] 40 mg PO BID #60 tablet
--- NOTE | 2019-09-02 11:40 | Gastroenterology Progress Note ---
Assessment and Plan Patient improving significantly, EGD negative for severe abnormality, therefore may discharge home with PPI and Carafate for 30 days if her symptoms do not fully resolve she should follow-up with me in the office regarding the symptoms. Patient should follow-up with me in the office later as she has never had a colonoscopy and she is over the age of 48 so she needs to schedule one, however cannot do that currently given the Covid virus outbreak so routine procedures are canceled. 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
[2019-09-02] MEDS ORDERED: PANTOPRAZOLE 40 MG TAB PO SCH (22:00)
== END 2019-09-02 12:50 | disposition home or self-care (01) ==
LOC: ED 04:13 → 4A 08:04
PROVIDERS: ADMIT Internal Medicine; ATTEND Internal Medicine
DX: R10.13 Epigastric pain (principal); R11.2 Nausea with vomiting, unspecified; K27.9 Peptic ulcer, site unspecified, unspecified as acute or chronic, without hemorrhage or perforation; D72.829 Elevated white blood cell count, unspecified
CPT/HCPCS: 36415; 43235; 74177; 80053; 83690; 85007; 85025; 88305; 88342; 96361; 96365; 96366; 96367; 96372; 96375; 96376; 99285; C9113; G0378; J0696; J1650; J2270; J2405; J2543; J2704; J7030; Q9967